=== PATIENT | male | born 1985 | race African-American/Black ===

== ENCOUNTER 2016-08-22 01:53 | Emergency (ER) | payer OTHER ==
[~2016-08-22] VITALS: Ht 180.3 cm; Wt 70.8 kg
[2016-08-22] MEDS ORDERED: INHALER (02:02)
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
[2016-08-22] MEDS ORDERED: NORCO 5-325 TA1 EACH ORAL (02:28)
[2016-08-22] MEDS ORDERED: IBUPROFEN600 MG ORAL (02:28)
[2016-08-22] MEDS ORDERED: Ketorolac 60mg Inj IM ONE (02:30)
[2016-08-22 03:15] VITALS: BP 131/78
[2016-08-22 03:20] VITALS: BP 131/78
== END 2016-08-22 03:20 | disposition home or self-care (01) ==
LOC: EMR 02:41
DX: M54.5 Low back pain (principal); G89.29 Other chronic pain; J45.909 Unspecified asthma, uncomplicated; F19.10 Other psychoactive substance abuse, uncomplicated
CPT/HCPCS: 96372; 99284

== ENCOUNTER 2020-01-25 21:53 | Emergency (ER) | payer SELFPAY ==
[~2020-01-25] VITALS: Ht 180.3 cm; Wt 79.8 kg
[~2020-01-25 21:53] MED LIST: IBUPROFEN600 MG ORAL; INHALER; NORCO 5-325 TA1 EACH ORAL
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
[2020-01-25] MEDS ORDERED: HYDROcodone/Acetamin 5/325 tab ORAL ONE (22:15)
[2020-01-25] MEDS ORDERED: HYDROCODON-ACE1 EA15 ORAL (22:32)
[2020-01-25] MEDS ORDERED: IBUPROFEN600 M1 ORAL (22:32)
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
[2020-01-25 22:40] VITALS: BP 139/81
== END 2020-01-25 22:40 | disposition home or self-care (01) ==
LOC: EMR 22:10
DX: S20.211A Contusion of right front wall of thorax, initial encounter (principal); J45.909 Unspecified asthma, uncomplicated; W22.8XXA Striking against or struck by other objects, initial encounter; Y93.39 Activity, other involving climbing, rappelling and jumping off; Y92.9 Unspecified place or not applicable
CPT/HCPCS: 99283

== ENCOUNTER 2020-07-11 21:53 | Emergency (ER) | payer SELFPAY ==
[~2020-07-11] VITALS: Ht 180.3 cm; Wt 70.8 kg
[~2020-07-11 21:53] MED LIST changes: +HYDROCODON-ACE1 EA15 ORAL; +IBUPROFEN600 M1 ORAL
--- NOTE | 2020-07-11 22:00 | NUR ---
Patient came to the ED with right lateral leg boil that started one week ago. patient also reports tenderness, warmth and swelling, pain is 10/10.
--- NOTE | 2020-07-11 22:10 | NUR ---
ED Nurse Note: Pt cleared by health care Provider for discharge. DC instructions/prescription was given and explained to pt and verbalized understanding of teachings. All medical deviecs such as ID band removed. Pt is AAO x4, ambulatory and left with all personal belongings.
[2020-07-11] MEDS ORDERED: BACTRIM DS TAB1 EAC1 ORAL (22:13)
[2020-07-11] MEDS ORDERED: PERCOCET 5-3251 EACH ORAL (22:13)
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
[2020-07-11] MEDS ORDERED: oxyCODONE HCL/Acetaminophen 5/325mg ORAL ONE (22:15)
[2020-07-11] MEDS ORDERED: Bactrim-DS 1 tab ORAL ONE (22:15)
[2020-07-11] MEDS ORDERED: Neosporin Oint Ud Pkt TOPIC ONE (22:15)
[2020-07-11 22:27] VITALS: BP 134/74
== END 2020-07-11 22:30 | disposition home or self-care (01) ==
LOC: EMR 22:07
DX: L02.415 Cutaneous abscess of right lower limb (principal); J45.909 Unspecified asthma, uncomplicated; W01.0XXA Fall on same level from slipping, tripping and stumbling without subsequent striking against object, initial encounter; Y93.9 Activity, unspecified; Y92.9 Unspecified place or not applicable
CPT/HCPCS: 99282